=== PATIENT | male | born 1945 | race Caucasian/White ===

== ENCOUNTER 2019-08-30 11:41 | Emergency (ER) | payer MEDICARE ==
[~2019-08-30] VITALS: Ht 182.9 cm; Wt 83.9 kg
[2019-08-30 11:43] VITALS: Ht 182.9 cm; Wt 83.9 kg
[2019-08-30 12:33] LABS: BASOPHIL % 0.6 % (0-2); PLATELET COUNT 185 x10^3mcL (130-400); RED CELL DISTRIBUTION WIDTH 12.8 % (11.5-14.5)
[2019-08-30 13:05] LABS: CALCIUM 8.1 mg/dL (8.5-10.1); CARBON DIOXIDE 25.9 mmol/L (21-32); CHLORIDE SERUM 96 mmol/L (98-107); GLUCOSE SERUM 114 mg/dL (74-106); POTASSIUM SERUM 5.3 mmol/L (3.5-5.1); SODIUM SERUM 128 mmol/L (136-145)
[2019-08-30 13:10] LABS: ALKALINE PHOSPHATASE 58 U/L (46-116); ALT/SGPT 35 U/L (16-63); AST/SGOT 28 U/L (15-37); BILIRUBIN TOTAL 0.5 mg/dL (0.20-1.00); HDL CHOLESTEROL 45 mg/dL (40-60); LIPASE 220 IU/L (73-393); T4(THYROXINE) 6.9 ug/dL (4.7-13.3); TOTAL PROTEIN, SERUM 6.5 g/dL (6.4-8.2)
[2019-08-30 13:11] LABS: microscopic required? NO
[2019-08-30 13:18] LABS: ALBUMIN 3.2 g/dL (3.4-5.0); CHOLESTEROL 127 mg/dL (<200)
[2019-08-30 13:25] LABS: UA SPECIFIC GRAVITY 1.015 (1.005-1.035); urine erythrocyte NEGATIVE (NEGATIVE)
[2019-08-30 13:47] LABS: AMPHETAMINE QUAL UR NONE DETECTED (See below)
[2019-08-30 15:10] VITALS: BP 167/86
== END 2019-08-30 15:10 | disposition home or self-care (01) ==
LOC: ED 11:41
PROVIDERS: Emergency Medicine
DX: E87.1 Hypo-osmolality and hyponatremia (principal); D64.9 Anemia, unspecified; K94.23 Gastrostomy malfunction; I10 Essential (primary) hypertension; E78.00 Pure hypercholesterolemia, unspecified; I44.7 Left bundle-branch block, unspecified; K42.9 Umbilical hernia without obstruction or gangrene; Z95.828 Presence of other vascular implants and grafts
CPT/HCPCS: 82962; 83880; J0295; J7030; Q0092